=== PATIENT | female | born 1970 | race Caucasian/White ===

== ENCOUNTER → 2016-12-15 | Outpatient (CLI) | payer OTHER | LOC: FIMAGING 12:54 | PROVIDERS: ATTEND Obstetrics & Gynecology Gynecology | DX: Z12.31 Encounter for screening mammogram for malignant neoplasm of breast (principal) | CPT/HCPCS: G0202 ==

== ENCOUNTER → 2018-01-30 | Outpatient (CLI) | payer OTHER | LOC: FIMAGING 14:35 | PROVIDERS: ATTEND Obstetrics & Gynecology Gynecology | DX: Z12.31 Encounter for screening mammogram for malignant neoplasm of breast (principal) ==

== ENCOUNTER → 2018-04-11 | Outpatient (CLI) | payer OTHER | LOC: FIMAGING 16:19 ==

== ENCOUNTER 2018-06-14 07:23 | Observation (INO) | payer OTHER ==
[2018-06-14] MEDS ORDERED: KETOROLAC 30 MG/1 ML SDV IVP ONE (07:27)
[2018-06-14] MEDS ORDERED: DEXAMETHASONE 10 MG/ML VIAL IVP ONE (07:27)
[2018-06-14] MEDS ORDERED: NS 1,000 ML IV ONE (07:27)
[2018-06-14] MEDS ORDERED: PROTAMINE SULFATE 50 MG/5 ML VIAL IVP PRN (07:27)
[2018-06-14] MEDS ORDERED: NALOXONE HCL 0.4 MG/ML INJ IVP PRN ×2 (07:27→08:50)
[2018-06-14] MEDS ORDERED: MIDAZOLAM 2 MG/2 ML VIAL IVP PRN (07:27)
[2018-06-14] MEDS ORDERED: FLUMAZENIL 0.5 MG/5 ML MDV IVP PRN (07:27)
[2018-06-14] MEDS ORDERED: HEPARIN 10,000 UNIT/10 ML MDV (1,000 UNIT/ML) IVP PRN (07:27)
[2018-06-14] MEDS ORDERED: SCOPOLAMINE HYDROBROMIDE 1 MG/3 DAYS PATCH TD ONE (07:27)
[2018-06-14] MEDS ORDERED: fentaNYL 100 MCG/2 ML INJ IVP PRN ×2 (07:27→11:43)
[2018-06-14 08:17] LABS: PLATELET COUNT 301 10^3/uL (150-400)
[2018-06-14] MEDS ORDERED: KETOROLAC 30 MG/1 ML SDV ONE (08:20)
[2018-06-14] MEDS ORDERED: DEXMEDETOMIDINE HCL 200 MCG in NS 50 ML IV ONE (08:30)
[2018-06-14 08:34] LABS: INR 0.97 (0.83-1.16); PROTIME(PATIENT) 12.5 SEC (12.0-15.0)
--- NOTE | 2018-06-14 08:44 | PDGENHP ---
History & Physical Chief Complaint: dysfunctional uterine bleeding History of Present Illness: IUD OUT weeks ago; bleeding improved. Pertinent Past, Social, Family History: ganglion lt wrist. dental implant; ankle surgery Relevant Physical Exam: in no distress Cardiorespiratory Assessment: rrr, cta
--- NOTE | 2018-06-14 08:45 | PDPROPOC ---
Sedation Plan of Care Sedation Plan of Care: vital signs stable, mental status noted, patient educated of risks, benefits, alternatives, patient can tolerate sedation ASA Classification: ASA 1 Planned drugs: fentanyl, midazolam Mallampati Score: Class 2 Mallampati Reference Image: Patient passed 3-3-2 rule?: Yes
[2018-06-14] MEDS ORDERED: ONDANSETRON 4 MG/2 ML VIAL ONE (08:48)
[2018-06-14] MEDS ORDERED: ONDANSETRON 4 MG/2 ML VIAL IVP ONE (09:02)
[2018-06-14] MEDS ORDERED: IOPAMIDOL (ISOVUE-300) 100 ML BTL ONE (10:11)
[2018-06-14] MEDS ORDERED: LIDOCAINE 1% 300 MG/30 ML SDV ONE ×2 (10:44→11:11)
[2018-06-14] MEDS ORDERED: BUPIVACAINE 0.5% 30 ML SDV ONE (10:44)
[2018-06-14] MEDS ORDERED: fentaNYL 100 MCG/2 ML INJ ONE ×3 (10:59→12:12)
[2018-06-14] MEDS ORDERED: POLYETHYLENE GLYCOL 3350 17 GM PKT PO PRN (11:10)
[2018-06-14] MEDS ORDERED: MAGNESIUM HYDROXIDE 30 ML UDCUP PO PRN (11:10)
[2018-06-14] MEDS ORDERED: BISACODYL 10 MG SUPP PR PRN (11:10)
[2018-06-14] MEDS ORDERED: LACTULOSE 20 GM/30 ML UDCUP PO PRN (11:10)
[2018-06-14] MEDS ORDERED: PROMETHAZINE HCL 25 MG/ML INJ IVP PRN (11:10)
[2018-06-14] MEDS ORDERED: NS 1,000 ML IV SCH (11:15)
--- NOTE | 2018-06-14 11:23 | PDRADPN ---
Radiology Procedure Note Date of Procedure: 06/14/18 Radiologist: Mary Ashby Anesthesia: IV Sedation Pre-op Diagnosis: uterine fibroids Post-op Diagnosis: same Indication: dysfunctional uterine bleeding Procedure: [place] Inf/Abcess present in the surg proc area at time of surgery?: No
[2018-06-14] MEDS: fentaNYL 100 MCG/2 ML INJ IVP PRN ×3 (12:05→12:15)
[2018-06-14] MEDS: ONDANSETRON 4 MG/2 ML VIAL IVP PRN ×2 (14:33→21:15)
[2018-06-14] MEDS: KETOROLAC 30 MG/1 ML SDV IVP SCH ×2 (14:53→21:08)
[2018-06-14] MEDS: HYDROmorphONE/DILAUDID 6 MG/30 ML PCA IV PRN (17:01)
[2018-06-14] MEDS: oxyCODONE IR 5 MG TAB PO PRN ×2 (18:40→22:53)
[2018-06-14] MEDS: morphINE SR 15 MG TAB PO SCH (21:57)
[2018-06-15] MEDS: KETOROLAC 30 MG/1 ML SDV IVP SCH ×3 (00:13→06:51)
[2018-06-15] MEDS: HYDROmorphONE/DILAUDID 6 MG/30 ML PCA IV PRN (06:39)
[2018-06-15] MEDS: SENNOSIDES/DOCUSATE SODIUM TAB PO SCH ×2 (06:53→08:52)
[2018-06-15] MEDS: morphINE SR 15 MG TAB PO SCH (08:52)
[2018-06-15] MEDS ORDERED: levOFLOXACIN 500 MG/DEXTROSE 100 ML IV ONE (09:00)
[2018-06-15] MEDS: METOCLOPRAMIDE 10 MG TAB PO SCH ×2 (09:52→15:34)
[2018-06-15] MEDS: IBUPROFEN 600 MG TAB PO SCH ×2 (09:53→16:48)
[2018-06-15] MEDS ORDERED: IBUPROFEN 600 MG TAB PO SCH (12:00)
[2018-06-15] MEDS ORDERED: METOCLOPRAMIDE 10 MG TAB PO SCH (12:00)
--- NOTE | 2018-06-15 16:04 | SOAPPROG ---
SOAP Progress Note Assessment/Plan: Assessment: standard post op course post UFE ready to be d/c Plan: D/C home all instructions discussed with patient Rx given. 06/15/18 16:03 Subjective: inital post op yesterday was rough with pain control. mostly nausea for today. now both are under control Objective: Vital Signs Temp Pulse Resp BP Pulse Ox 36.7 C 67 16 96/56 L 96 06/15/18 08:40 06/15/18 08:40 06/15/18 08:40 06/15/18 08:40 06/15/18 08:40 Laboratory Results 06/14/18 08:00 06/14/18 08:00 06/14/18 06/15/18 06/16/18 05:59 05:59 05:59 Intake Total 3000 Output Total 2375 400 Balance 625 -400 PT 12.5 SEC (12.0-15.0) 06/14/18 08:00 INR 0.97 (0.83-1.16) 06/14/18 08:00 groin without hematoma. abd soft - Pending Discharge Pending Discharge Within 24 Hours: Yes Pending Discharge Date: 06/16/18 Pending Discharge Time: 11:00 ICD10 Worksheet Patient Problems: Problems Problem Status Onset Uterine fibroid Acute - ICD10 Problem Qualifiers (1) Uterine fibroid Qualifiers: Uterine leiomyoma location: intramural Qualified Code(s): D25.1 - Intramural leiomyoma of uterus
[2018-06-15 17:02] VITALS: BP 98/60
== END 2018-06-15 17:20 | disposition home or self-care (01) ==
LOC: FIMAGING 07:23 → F3E 11:11 → FOB 13:00
PROVIDERS: ADMIT Radiology Diagnostic Radiology; ATTEND Radiology Diagnostic Radiology
PROC: 04LE3DT Occlusion of Right Uterine Artery with Intraluminal Device, Percutaneous Approach (ICD-10-PCS; principal; 2018-06-14 11:20)
PROC: 04LF3DU Occlusion of Left Uterine Artery with Intraluminal Device, Percutaneous Approach (ICD-10-PCS; principal; 2018-06-14 11:20)
DX: D25.9 Leiomyoma of uterus, unspecified (principal)
CPT/HCPCS: 37243; 75736; 99152; 99153; C1769; C1887; C1894; G0378; C1760; J1100; J1170; J1644; J1885; J1956; J2250; J2405; J3010; Q9967